=== PATIENT | male | born 1990 | race Two or more races ===

== ENCOUNTER 2018-07-25 19:05 | Emergency (ER) | payer SELFPAY ==
[~2018-07-25] VITALS: Ht 167.6 cm; Wt 63.5 kg
[2018-07-25 19:33] VITALS: BP 135/74
[2018-07-25 20:32] LABS: Basophils # (auto) 0.1 uL; Basophils % (auto) 0.9 % (0.0-2.0); Eosinophils # (auto) 0.1 uL; Eosinophils % (auto) 1.2 % (0.0-7.0); Hematocrit 44.8 % (41.0-53.0); Hemoglobin 15.3 g/dL (13.5-17.5); Lymphocytes # (auto) 2.1 uL; Lymphocytes % (auto) 27.1 % (10.0-50.0); Mean Corpuscular Hemoglobin 31.2 pg (28.0-32.0); Mean Corpuscular Hgb Conc. 34.1 g/dL (32.0-36.0); Mean Corpuscular Volume 91.5 fL (80.0-100.0); Monocytes # (auto) 0.5 uL; Monocytes % (auto) 6.4 % (0.0-12.0); Neutrophils # (auto) 5.1 uL; Neutrophils % (auto) 64.4 % (37.0-80.0); Nucleated Red Blood Cells % 0.1 %; Platelet Count (auto) 337 10^3/uL (140-450); Red Blood Cells 4.89 10^6/uL (4.5-5.90); Red Cell Distribution Width 12.3 % (11.8-14.3); White Blood Cell 7.9 10^3/uL (4.4-10.8)
[2018-07-25 20:56] LABS: Carbamazepine (Tegretol) < 0.5 ug/mL (4-12); Phenytoin (Dilantin) < 0.4 ug/mL (10-20); Valproic Acid (Depakene) < 3.0 ug/mL (50-100)
[2018-07-25 21:30] LABS: Albumin 4.1 g/dL (3.4-5.0); BUN/Creatinine Ratio 18.9; Calcium 8.7 mg/dL (8.5-10.1); Potassium 4.4 mmol/L (3.5-5.1)
[2018-07-25 21:32] LABS: Bilirubin, Total 0.4 mg/dL (0.2-1.0); Total Protein 7.8 g/dL (6.4-8.2)
== END 2018-07-25 21:10 | disposition left against medical advice (07) ==
LOC: EDBD 19:05 → ER 19:05 → EDUNIT# 19:05 → ER 21:10
DX: G40.909 Epilepsy, unspecified, not intractable, without status epilepticus (principal); Z53.29 Procedure and treatment not carried out because of patient's decision for other reasons
CPT/HCPCS: 36415; 80053; 80156; 80164; 80185; 85025; 93005

== ENCOUNTER → 2019-06-17 | Emergency (ER) | payer MEDICAID, OTHER ==
[~2019-06-17] VITALS: Ht 167.6 cm; Wt 64.4 kg
[~2019-06-17] MED LIST: HYDROcodone-ACET 7.5/325MG TAB PO ONE; IBUPROFEN 100MG/5ML ORAL SUSP 100 MG/5 ML UD GT ONE; SILVER SULFADIAZINE 1 % TOPICAL CREAM 50GM TOP ONE; TETANUS-DIPTH-ACEL PERTUSSIS 0.5ML SYR Tdap IM ONE
[2019-06-17 12:46] VITALS: BP 124/79
== END | disposition home or self-care (01) ==
LOC: ER 12:09
DX: T22.112A Burn of first degree of left forearm, initial encounter (principal); T21.12XA Burn of first degree of abdominal wall, initial encounter; T24.122A Burn of first degree of left knee, initial encounter; T24.112A Burn of first degree of left thigh, initial encounter; X15.2XXA Contact with hotplate, initial encounter; Y93.89 Activity, other specified; Y92.89 Other specified places as the place of occurrence of the external cause; Y99.8 Other external cause status
CPT/HCPCS: 16000; 90471; 90715